=== PATIENT | male | born 1970 | race Caucasian/White ===

== ENCOUNTER 2024-08-28 21:22 | Emergency (ER) | payer OTHER ==
[~2024-08-28] VITALS: Ht 180.3 cm; Wt 74.8 kg
[2024-08-28 21:25] VITALS: BP 180/124; PULSE 92; RESP 16; TEMP 98; O2SAT 98
[2024-08-28 22:18] VITALS: O2SAT 98
[2024-08-28 23:04] VITALS: BP 180/124; PULSE 92; RESP 16; TEMP 98; O2SAT 98
[2024-08-28] MEDS: IBUPROFEN 600 MG TAB PO ONE (23:56)
[2024-08-29] MEDS ORDERED: IBUP-1842 PO (00:48)
== END 2024-08-29 00:52 | disposition home or self-care (01) ==
LOC: MED 21:22
DX: S16.1XXA Strain of muscle, fascia and tendon at neck level, initial encounter (principal); Z79.899 Other long term (current) drug therapy; X58.XXXA Exposure to other specified factors, initial encounter; Y92.89 Other specified places as the place of occurrence of the external cause; Y93.89 Activity, other specified; Y99.8 Other external cause status
CPT/HCPCS: 99283